=== PATIENT | male | born 1990 | race Two or more races ===

== ENCOUNTER 2021-06-29 20:21 | Emergency (ER) | payer SELFPAY ==
[~2021-06-29] VITALS: Ht 167.6 cm; Wt 81.8 kg
[2021-06-29 20:50] VITALS: BP 172/94
--- NOTE | 2021-06-29 22:03 | PHYS DOC ---
Past Medical History Past Medical History: No Pertinent History Past Surgical History: No Surgical History General Adult EDM: Chief Complaint: HAND PROBLEM HPI: HPI: Patient is a 31-year-old male who presents today with right hand pain. Patient states that on Sunday last week he was upset and punched a wall and since that time he has had pain and swelling in his hand. 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 Review of Systems: Review of Systems: Constitutional: Denies fever or chills. [] Eyes: Denies change in visual acuity. [] HENT: Denies nasal congestion or sore throat. [] Respiratory: Denies cough or shortness of breath. [] Cardiovascular: Denies chest pain or edema. [] GI: Denies abdominal pain, nausea, vomiting, bloody stools or diarrhea. [] : Denies dysuria. [] Musculoskeletal: Right hand pain Integument: Denies rash. [] Neurologic: Denies headache, focal weakness or sensory changes. [] Endocrine: Denies polyuria or polydipsia. [] Lymphatic: Denies swollen glands. [] Psychiatric: Denies depression or anxiety. [] Heart Score: C/O Chest Pain: N/A Risk Factors: Risk Factors: DM, Current or recent (<one month) smoker, HTN, HLP, family history of CAD, obesity. Risk Scores: Score 0 - 3: 2.5% MACE over next 6 weeks - Discharge Home Score 4 - 6: 20.3% MACE over next 6 weeks - Admit for Clinical Observation Score 7 - 10: 72.7% MACE over next 6 weeks - Early Invasive Strategies Allergies: Allergies: Allergies Coded Allergies Type Severity Reaction Last Updated Verified No Known Drug Allergies 06/29/21 No Physical Exam: PE: Constitutional: Well developed, well nourished, no acute distress, non-toxic appearance. [] HENT: Normocephalic, atraumatic, bilateral external ears normal, oropharynx moist, no oral exudates, nose normal. [] Eyes: PERRLA, EOMI, conjunctiva normal, no discharge. [] Neck: Normal range of motion, no tenderness, supple, no stridor. [] Cardiovascular:Heart rate regular rhythm, no murmur [] Lungs & Thorax: Bilateral breath sounds clear to auscultation [] Abdomen: Bowel sounds normal, soft, no tenderness, no masses, no pulsatile masses. [] Skin: Warm, dry, no erythema, no rash. [] Back: No tenderness, no CVA tenderness. [] Extremities: Right hand swollen tender to touch over third, fourth, fifth metacarpal, cap refill less than 2 seconds distal to the injury and pain, sensory intact distal to the swelling and pain. Radial pulse 2+ Neurologic: Alert and oriented X 3, normal motor function, normal sensory function, no focal deficits noted. [] Psychologic: Affect normal, judgement normal, mood normal. [] Current Patient Data: Vital Signs: Vital Signs Date Time Temp Pulse Resp B/P (MAP) Pulse Ox O2 Delivery O2 Flow Rate FiO2 06/29/21 20:50 98.2 126 16 172/94 (120) 99 Room Air 98.2 EKG: EKG: [] Radiology/Procedures: Radiology/Procedures: REASON: pain after punching a wall PROCEDURE: HAND RIGHT 3V EXAM: 3 views right hand DATE: 06/29/2021 8:57 PM INDICATION: Reason: pain after punching a wall / Spl. Instructions: / History: . COMPARISON: No Prior FINDINGS/ IMPRESSION: There is a comminuted fracture at the base of the fourth metacarpal with dorsal fourth CMC subluxation. There is also a small avulsion fracture of the dorsal hamate. Moderate associated soft tissue swelling. Electronically signed by: Clayton Ahumada MD (06/29/2021 10:52 PM) KEVIN [] Course & Med Decision Making: Course & Med Decision Making Pertinent Labs and Imaging studies reviewed. (See chart for details) Spoke to patient regarding radiology results will place patient in a ulnar gutter splint will give patient a follow-up to see orthopedic for surgeon for further management of his fracture. Patient verbalized understanding of discharge instructions and agrees to the plan of care. Review of splint after placement neurovascular intact distal to the injury. Madhu Disclaimer: Madhu Disclaimer: This electronic medical record was generated, in whole or in part, using a voice recognition dictation system. Departure Departure Impression: Primary Impression: Fx metacarpal Qualified Codes: S62.344A - Nondisplaced fracture of base of fourth metacarpal bone, right hand, initial encounter for closed fracture Disposition: HOME / SELF CARE / HOMELESS Condition: STABLE Referrals: NO PCP (PCP) DANI GODINEZ MD Patient Instructions: Cast or Splint Care, Hand Fracture, Metacarpals, RICE - Routine Care for Injuries Additional Instructions: Keep splint clean and dry, leave splint in place until follow-up with orthopedic doctor. Ice 20 minutes on 3-4 times daily to help with swelling and pain. Ibuprofen or Tylenol [id number] as needed for pain. Follow-up with Dr. Godinez next week for further management of your hand fracture. LISA ZACARIAS [employer] Jun 29, 2021 22:03
--- NOTE | 2021-06-29 22:54 | RAD ---
EXAM: 3 views right hand DATE: 06/29/2021 8:57 PM INDICATION: Reason: pain after punching a wall / Spl. Instructions: / History: . COMPARISON: No Prior FINDINGS/ IMPRESSION: There is a comminuted fracture at the base of the fourth metacarpal with dorsal fourth CMC subluxatio n. There is also a small avulsion fracture of the dorsal hamate. Moderate associated soft tissue swel ling. Electronically signed by: Clayton Ahumada MD (06/29/2021 10:52 PM) KEVIN
== END 2021-06-29 22:47 | disposition home or self-care (01) ==
LOC: ER 20:21
DX: S62.344A Nondisplaced fracture of base of fourth metacarpal bone, right hand, initial encounter for closed fracture (principal); W22.01XA Walked into wall, initial encounter; Y93.89 Activity, other specified; Y92.89 Other specified places as the place of occurrence of the external cause; Y99.8 Other external cause status
CPT/HCPCS: 29125; 73130; 99283